=== PATIENT | male | born 1985 | race Caucasian/White ===

== ENCOUNTER 2018-06-15 09:46 | Emergency (ER) | payer OTHER ==
[~2018-06-15] VITALS: Ht 182.9 cm; Wt 84.1 kg
[2018-06-15 09:51] VITALS: TEMP 98.4
[2018-06-15] MEDS ORDERED: ADDERALL20 MG PO (09:59)
[2018-06-15] MEDS ORDERED: MOTRIN 800800 MG/TAB PO (10:00)
[2018-06-15] MEDS ORDERED: CHANTIX 1MG1 MG PO (10:00)
[2018-06-15] MEDS ORDERED: ALEVE 220MG220 MG PO (10:01)
[2018-06-15] MEDS ORDERED: NORCO 325 MG-51 TAB PO (11:24)
[2018-06-15] MEDS ORDERED: LIDODERM 5% PATC1 EA TP (11:25)
[2018-06-15 11:53] VITALS: BP 121/77; PULSE 71
== END 2018-06-15 11:57 | disposition home or self-care (01) ==
LOC: COL.ER 09:46
DX: G89.29 Other chronic pain (principal); M54.5 Low back pain
CPT/HCPCS: J1885